=== PATIENT | male | born 2005 | race Caucasian/White ===

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

== ENCOUNTER 2024-06-14 09:50 | Emergency (ER) | payer MEDICAID, OTHER ==
[~2024-06-14] VITALS: Ht 175.3 cm; Wt 120.0 kg
[~2024-06-14 09:50] MED LIST: AMOX250C4 PO
[2024-06-14 09:58] VITALS: TEMP 98.4
[2024-06-14] MEDS ORDERED: AMOX-457 PO (10:49)
[2024-06-14] MEDS ORDERED: BACI28.410 TP (10:49)
[2024-06-14] MEDS: PERTUSS(ACELL),DIPH,TET/PF 0.5 ML SYRINGE [ADULT] IM. ONE (11:15)
[2024-06-14 11:33] VITALS: BP 149/81; PULSE 97; RESP 18; O2SAT 100
== END 2024-06-14 11:34 | disposition home or self-care (01) ==
LOC: EMS 09:51
DX: S61.251A Open bite of left index finger without damage to nail, initial encounter (principal); W55.01XA Bitten by cat, initial encounter; Y93.89 Activity, other specified; Y92.89 Other specified places as the place of occurrence of the external cause; Y99.8 Other external cause status
CPT/HCPCS: 90471; 90715; 99283